=== PATIENT | female | born 1960 | race Caucasian/White ===

== ENCOUNTER 2021-07-15 08:01 | Day surgery (SDC) | payer MEDICARE, OTHER ==
[~2021-07-15 08:01] MED LIST: Brimonidine 0.2% Ophth Soln 5 ML Bottle EYERT SCH; Cefuroxime 10 MG/ML SYRINGE EYERT SCH; Lidocaine 1% PF 2 ML SDV INJECT SCH; Phenylephrine 2.5% Ophth Soln 2 ML Bot EYERT SCH; Pilocarpine 4% Ophth Soln 15 ML Bot EYERT SCH; Polymyxin B/Trimethoprim 10 ML Bottle EYERT SCH; Tetracaine HCl/PF 0.5% 4 ML Bottle EYEBOTH SCH; Tropicamide 1% Ophth Soln 15 ML Bottle EYERT SCH
--- NOTE | 2021-07-15 08:40 | PCM.PREANE ---
Preanesthetic Assessment - Procedure Proposed Procedure: Cataract Extraction of right eye with IOL. - Anesthesia/Transfusion/Family Hx Anesthesia History: Prior Anesthesia Without Reaction Family History of Anesthesia Reaction: No Transfusion History: No Prior Transfusion(s) Intubation History: Unknown - Review of Systems General: No Symptoms Pulmonary: No Symptoms (ETOH: occasionally) Cardiovascular: No Symptoms (HTN) Gastrointestinal: No Symptoms (GERD) Neurological: No Symptoms (Multiple Sclerosis), Tingling (due to MS) Other: Reports: Easy Bruising, Anxiety - Physical Assessment NPO Status Date: 07/14/21 NPO Status Time: 19:00 Vital Signs: HR: 57 Sat: 98% Resp: 16 B/P: 146/109 Temp: 97.7 Height: 1.68 m Weight: 68.039 kg ASA Class: 3 Mental Status: Alert & Oriented x3 Airway Class: Mallampati = 2 Dentition: Reports: Normal Dentition, Caries Thyro-Mental Finger Breadths: 3 Mouth Opening Finger Breadths: 3 ROM/Head Extension: Full Lungs: Clear to Auscultation, Normal Respiratory Effort Cardiovascular: Regular Rate, Regular Rhythm, No Murmurs - Allergies Allergies/Adverse Reactions: Allergies Allergy/AdvReac Type Severity Reaction Status Date / Time sulfacetamide Allergy Rash Verified 06/21/21 15:20 - Anesthesia Plan Pre-Op Medication Ordered: Beta Johnny Beta Johnny: Metoprolol Med Last Dose Date: 07/14/21 Med Last Dose Time: 19:00 - Acknowledgements Anesthesia Type Planned: MAC Pt an Appropriate Candidate for the Planned Anesthesia: Yes Alternatives and Risks of Anesthesia Discussed w Pt/Guardian: Yes Pt/Guardian Understands and Agrees with Anesthesia Plan: Yes PreAnesthesia Questionnaire - HOME MEDS Home Medications: Home Meds FLUoxetine [PROzac] 40 mg PO DAILY 06/21/21 [History] Gabapentin [Neurontin] 100 mg PO ASDIRECTED 06/21/21 [History] Losartan [Cozaar] 50 mg PO DAILY 06/21/21 [History] Metoprolol Succinate [Kapspargo Sprinkle] 50 mg PO DAILY 06/21/21 [History] Sertraline [Zoloft] 50 mg PO DAILY 06/21/21 [History] traMADol [Ultram] 50 mg PO ASDIRECTED 06/21/21 [History] - CURRENT (IN HOUSE) MEDS Current Meds: Current Medications Brimonidine Tartrate (Brimonidine 0.2% Ophth Soln 5 Ml Bottle) 0 ml EYERT ASDIRECTED ZEE Stop: 07/15/21 18:00 Cefuroxime Sodium (Cefuroxime 10 Mg/Ml Syringe) 0 mg EYERT ASDIRECTED ZEE Stop: 07/15/21 18:00 Lidocaine HCl (Lidocaine 1% Pf 2 Ml Sdv) 0 ml INJECT ASDIRECTED ZEE Stop: 07/15/21 18:00 Ofloxacin (Ofloxacin 0.3% Ophth Soln 5 Ml Bottle) 0 ml EYERT ASDIRECTED ZEE Stop: 07/15/21 18:00 Phenylephrine HCl (Phenylephrine 2.5% Ophth Soln 2 Ml Bot) 0 ml EYERT ASDIRECTED ZEE Stop: 07/15/21 18:00 Pilocarpine HCl (Pilocarpine 4% Ophth Soln 15 Ml Bot) 0 ml EYERT ASDIRECTED ZEE Stop: 07/15/21 18:00 Tetracaine HCl (Tetracaine Hcl/Pf 0.5% 4 Ml Bottle) 0 ml EYEBOTH ASDIRECTED ZEE Stop: 07/15/21 18:00 Tropicamide (Tropicamide 1% Ophth Soln 15 Ml Bottle) 0 ml EYERT ASDIRECTED ZEE Stop: 07/15/21 18:00 Discontinued Medications Brimonidine Tartrate (Brimonidine 0.2% Ophth Soln 5 Ml Bottle) 0 ml EYERT ASDIRECTED ZEE Stop: 07/06/21 16:00 Cefuroxime Sodium (Cefuroxime 10 Mg/Ml Syringe) 0 mg EYERT ASDIRECTED ZEE Stop: 07/06/21 16:00 Lidocaine HCl (Lidocaine 1% Pf 2 Ml Sdv) 0 ml INJECT ASDIRECTED ZEE Stop: 07/06/21 16:00 Phenylephrine HCl (Phenylephrine 2.5% Ophth Soln 2 Ml Bot) 0 ml EYERT ASDIRECTED ZEE Stop: 07/06/21 16:00 Pilocarpine HCl (Pilocarpine 4% Ophth Soln 15 Ml Bot) 0 ml EYERT ASDIRECTED ZEE Stop: 07/06/21 16:00 Polymyxin/Trimethoprim Sulfate (Polymyxin B/Trimethoprim 10 Ml Bottle) 0 ml EYERT ASDIRECTED ZEE Stop: 07/06/21 16:00 Tetracaine HCl (Tetracaine Hcl/Pf 0.5% 4 Ml Bottle) 0 ml EYEBOTH ASDIRECTED ZEE Stop: 07/06/21 16:00 Tropicamide (Tropicamide 1% Ophth Soln 15 Ml Bottle) 0 ml EYERT ASDIRECTED ZEE Stop: 07/06/21 16:00
[2021-07-15] MEDS: Ofloxacin 0.3% Ophth Soln 5 ML Bottle EYERT SCH ×4 (08:58→10:39)
[2021-07-15] MEDS: Brimonidine 0.2% Ophth Soln 5 ML Bottle EYERT SCH ×4 (09:02→10:39)
[2021-07-15] MEDS: Phenylephrine 2.5% Ophth Soln 2 ML Bot EYERT SCH ×6 (09:07→10:14)
[2021-07-15] MEDS: Tropicamide 1% Ophth Soln 15 ML Bottle EYERT SCH ×4 (09:11→09:50)
[2021-07-15] MEDS: Tetracaine HCl/PF 0.5% 4 ML Bottle EYEBOTH SCH ×3 (09:56→10:27)
[2021-07-15] MEDS: Lidocaine 1% PF 2 ML SDV INJECT SCH ×2 (10:14→10:28)
[2021-07-15] MEDS: Cefuroxime 10 MG/ML SYRINGE EYERT SCH ×2 (10:15→10:38)
[2021-07-15] MEDS: Pilocarpine 4% Ophth Soln 15 ML Bot EYERT SCH ×2 (10:15→10:39)
--- NOTE | 2021-07-15 10:41 | PCM48HPAN ---
Post Anesthesia Note - EVALUATION WITHIN 48HRS OF ANESTHETIC Vital Signs in Normal Range: Yes Patient Participated in Evaluation: Yes Respiratory Function Stable: Yes Airway Patent: Yes Cardiovascular Function Stable: Yes Hydration Status Stable: Yes Pain Control Satisfactory: Yes Nausea and Vomiting Control Satisfactory: Yes Mental Status Recovered: Yes
== END 2021-07-15 10:50 | disposition home or self-care (01) ==
LOC: JD.SDS 08:01
PROVIDERS: ATTEND Ophthalmology
DX: H25.813 Combined forms of age-related cataract, bilateral (principal); G35 Multiple sclerosis; I10 Essential (primary) hypertension; Z98.890 Other specified postprocedural states; Z79.899 Other long term (current) drug therapy
CPT/HCPCS: 66984; J0697; A9270-GY; C1780

== ENCOUNTER 2021-09-30 08:31 | Day surgery (SDC) | payer MEDICARE ==
[~2021-09-30 08:31] MED LIST changes: -Brimonidine 0.2% Ophth Soln 5 ML Bottle EYERT SCH; -Cefuroxime 10 MG/ML SYRINGE EYERT SCH; -Lidocaine 1% PF 2 ML SDV INJECT SCH; -Phenylephrine 2.5% Ophth Soln 2 ML Bot EYERT SCH; -Pilocarpine 4% Ophth Soln 15 ML Bot EYERT SCH; +Polymyxin B/Trimethoprim 10 ML Bottle EYELF SCH; -Polymyxin B/Trimethoprim 10 ML Bottle EYERT SCH; -Tetracaine HCl/PF 0.5% 4 ML Bottle EYEBOTH SCH; -Tropicamide 1% Ophth Soln 15 ML Bottle EYERT SCH
[2021-09-30] MEDS: Ofloxacin 0.3% Ophth Soln 5 ML Bottle EYELF SCH ×4 (09:00→12:01)
[2021-09-30] MEDS: Brimonidine 0.2% Ophth Soln 5 ML Bottle EYELF SCH ×4 (09:06→12:01)
[2021-09-30] MEDS: Phenylephrine 2.5% Ophth Soln 2 ML Bot EYELF SCH ×6 (09:10→11:54)
[2021-09-30] MEDS: Tropicamide 1% Ophth Soln 15 ML Bottle EYELF SCH ×4 (09:15→10:17)
[2021-09-30] MEDS ORDERED: Metoprolol Tartrate 25 MG Tab PO ONE (09:45)
[2021-09-30] MEDS: Tetracaine HCl/PF 0.5% 4 ML Bottle EYEBOTH SCH ×3 (11:33→11:54)
[2021-09-30] MEDS: Lidocaine 1% PF 2 ML SDV INJECT SCH ×2 (11:50→11:54)
[2021-09-30] MEDS: Cefuroxime 10 MG/ML SYRINGE EYELF SCH ×2 (11:54→12:00)
[2021-09-30] MEDS: Pilocarpine 4% Ophth Soln 15 ML Bot EYELF SCH ×2 (11:55→12:01)
== END 2021-09-30 12:11 | disposition home or self-care (01) ==
LOC: JD.SDS 08:31
PROVIDERS: ATTEND Ophthalmology
DX: H25.812 Combined forms of age-related cataract, left eye (principal); I10 Essential (primary) hypertension; Z98.890 Other specified postprocedural states; Z88.2 Allergy status to sulfonamides
CPT/HCPCS: 66984; A9270; J0697; C1780

== ENCOUNTER 2024-07-10 18:50 | Inpatient (IN) | payer MEDICARE ==
[2024-07-10 19:44] LABS: BASOPHILS PERCENT AUTO 0.3 % (0.0-1.0); EOSINOPHILS ABSOLUTE AUTO 0.1 K/mm3 (0.0-0.4); EOSINOPHILS PERCENT AUTO 0.6 % (0.0-6.0); HEMATOCRIT 44.5 % (37.0-47.0); HEMOGLOBIN 14.9 gm/dl (12.0-16.0); IMMATURE GRAN ABSOLUTE AUTO 0.04 K/mm3 (0.00-0.05); IMMATURE GRAN PERCENT AUTO 0.3 % (0.0-0.4); LYMPHOCYTES ABSOLUTE AUTO 0.6 K/mm3 (1.0-4.8); LYMPHOCYTES PERCENT AUTO 5.2 % (24.0-44.0); MEAN CORPUSCULAR HEMOGLOBIN 29.6 pg (28.0-32.0); MEAN CORPUSCULAR HGB CONC 33.5 g/dl (32.0-36.0); MEAN CORPUSCULAR VOLUME 88.5 fl (83.0-99.0); MEAN PLATELET VOLUME 10.1 fl (9.4-12.3); MONOCYTES ABSOLUTE AUTO 0.7 K/mm3 (0.0-0.8); MONOCYTES PERCENT AUTO 5.9 % (0.0-8.0); NEUTROPHILS ABSOLUTE AUTO 10.2 K/mm3 (1.8-7.7); NEUTROPHILS PERCENT AUTO 87.7 % (41.0-71.0); PLATELET COUNT,PLT 211 K/mm3 (150-400); RED BLOOD CELL COUNT 5.03 M/mm3 (4.10-5.30); WHITE BLOOD CELL COUNT,WBC 11.63 K/mm3 (3.9-11.3)
[2024-07-10 19:49] LABS: APPEARANCE,URINE SLT CLOUDY (Clear); BILIRUBIN,URINE NEGATIVE (Negative); COLOR,URINE YELLOW (Yellow); GLUCOSE,URINE NEGATIVE (Negative); KETONES,URINE NEGATIVE (Negative); LEUKOCYTE ESTERASE,URINE 2+ (Negative); NITRITE,URINE POSITIVE (Negative); OCCULT BLOOD,URINE 1+ (Negative); PH,URINE 6.5 (5.0-8.0); PROTEIN,URINE 1+ (Negative); UROBILINOGEN,URINE 0.2 (0.2-1.0)
[2024-07-10 19:54] LABS: ALBUMIN 3.5 g/dl (3.4-5.0); BUN/CREATININE RATIO 21.3 (14-18); C-REACTIVE PROTEIN 0.85 mg/dL (<0.30); CALCIUM 8.9 mg/dL (8.5-10.1); CREATININE 0.8 mg/dL (0.55-1.02); EST CRCL DRUG DOSING (CG) 65.63 mL/min; PROTEIN TOTAL,TP 7.1 g/dl (6.4-8.2)
[2024-07-10 19:55] LABS: BARBITURATE SCREEN,URINE NEGATIVE (CUTOFF=200); BENZODIAZEPINES SCREEN,URINE PRESUMPTIVE POSITIVE (CUTOFF=150); BUPRENORPHINE SCREEN,URINE NEGATIVE (CUTOFF=10); METHADONE SCREEN, URINE NEGATIVE (CUTOFF=200); METHAMPHETAMINES SCREEN, URINE NEGATIVE (CUTOFF=500); OXYCODONE SCREEN,URINE NEGATIVE (CUT0FF=100); THC SCREEN,URINE 20 NG/ML NEGATIVE (CUTOFF=50)
[2024-07-10] MEDS: Naloxone 0.4 MG/ML SDV IVPUSH ONE (19:57)
[2024-07-10 19:58] LABS: AMPHETAMINES SCREEN, URINE NEGATIVE (CUTOFF=500)
[2024-07-10 20:00] LABS: SQUAMOUS EPITHELIAL CELLS,UR 0-5 /hpf (0-5); WBC,URINE 30-40 /hpf (0-5)
[2024-07-10 20:01] LABS: BACTERIA,URINE MANY /hpf (FEW); MUCUS,URINE FEW /hpf (FEW)
[2024-07-10] MEDS: cefTRIAXone 1 GM Vial IV ONE (20:55)
[2024-07-10] MEDS: cefTRIAXone 1 GM in Sodium Chloride 0.9% 50 ML IV ONE ×2 (21:03→22:49)
[2024-07-10] MEDS: Sodium Chloride 0.9% 1,000 ML IV ONE (21:29)
[2024-07-10] MEDS: Sodium Chloride 0.9% 50 ML ONE (21:30)
[2024-07-10] MEDS: D5 1/2 NS w/ 20 mEq/L KCl 1,000 ML IV SCH (22:41)
[2024-07-10] MEDS: LORazepam 2 MG/ML SDV IVPUSH ONE ×2 (22:41→22:49)
[2024-07-10] MEDS: Metoprolol Tartrate 5 MG/5 ML SDV IVPUSH ONE (22:44)
[2024-07-11] MEDS ORDERED: LORazepam 2 MG/ML SDV IVPUSH PRN (00:53)
[2024-07-11] MEDS: hydrALAZINE 20 MG/ML SDV IVPUSH ONE (02:06)
[2024-07-11] MEDS: hydrALAZINE 20 MG/ML SDV ONE (02:19)
[2024-07-11] MEDS: Metoprolol Tartrate 5 MG/5 ML SDV IVPUSH PRN (03:58)
[2024-07-11 04:31] LABS: BASOPHILS PERCENT AUTO 0.3 % (0.0-1.0); EOSINOPHILS PERCENT AUTO 0.1 % (0.0-6.0); HEMATOCRIT 38.5 % (37.0-47.0); HEMOGLOBIN 12.8 gm/dl (12.0-16.0); IMMATURE GRAN ABSOLUTE AUTO 0.04 K/mm3 (0.00-0.05); IMMATURE GRAN PERCENT AUTO 0.3 % (0.0-0.4); LYMPHOCYTES ABSOLUTE AUTO 1.5 K/mm3 (1.0-4.8); LYMPHOCYTES PERCENT AUTO 10.8 % (24.0-44.0); MEAN CORPUSCULAR HEMOGLOBIN 29.2 pg (28.0-32.0); MEAN CORPUSCULAR HGB CONC 33.2 g/dl (32.0-36.0); MEAN CORPUSCULAR VOLUME 87.9 fl (83.0-99.0); MEAN PLATELET VOLUME 9.9 fl (9.4-12.3); MONOCYTES ABSOLUTE AUTO 1.1 K/mm3 (0.0-0.8); MONOCYTES PERCENT AUTO 8.1 % (0.0-8.0); NEUTROPHILS ABSOLUTE AUTO 11.1 K/mm3 (1.8-7.7); NEUTROPHILS PERCENT AUTO 80.4 % (41.0-71.0); PLATELET COUNT,PLT 188 K/mm3 (150-400); RED BLOOD CELL COUNT 4.38 M/mm3 (4.10-5.30); WHITE BLOOD CELL COUNT,WBC 13.81 K/mm3 (3.9-11.3)
[2024-07-11 04:55] LABS: A/G RATIO 0.9 (1-2); ALBUMIN 3.1 g/dl (3.4-5.0); ANION GAP 16.1 (5-15); BILIRUBIN TOTAL 1.1 mg/dL (0.2-1.0); BUN/CREATININE RATIO 18.6 (14-18); CALCIUM 8.4 mg/dL (8.5-10.1); CREATININE 0.7 mg/dL (0.55-1.02); EST CRCL DRUG DOSING (CG) 75.01 mL/min; MAGNESIUM 1.7 mg/dL (1.8-2.4); PHOSPHORUS 2.1 mg/dL (2.6-4.7); POTASSIUM,K 4.1 mEq/L (3.5-5.1); PROTEIN TOTAL,TP 6.4 g/dl (6.4-8.2)
[2024-07-11] MEDS: Labetalol 100 MG/20 ML MDV IVPUSH PRN ×2 (05:12→20:14)
[2024-07-11] MEDS: Ketorolac 15 MG/ML SDV IVPUSH ONE (06:28)
[2024-07-11] MEDS ORDERED: Albuterol/Ipratropium 3.0-0.5 MG/3 ML Neb Soln NEB PRN (08:03)
[2024-07-11] MEDS ORDERED: Albuterol 0.083% 2.5 MG/3 ML Neb Soln NEB PRN (08:03)
[2024-07-11] MEDS ORDERED: Acetaminophen 650 MG Supp RECTAL PRN (08:03)
[2024-07-11] MEDS ORDERED: Potassium Phosphates 30 MMOLE in Sodium Chloride 0.9% 500 ML IV SCH (08:15)
[2024-07-11] MEDS: Pantoprazole 40 MG Vial IVPUSH SCH (08:28)
[2024-07-11] MEDS: Magnesium Sulfate/Water Premix 2 GM in Premix Bag 1 BAG IV ONE (08:28)
[2024-07-11 08:59] LABS: LACTIC ACID 2.3 mmol/L (0.4-2.0)
[2024-07-11] MEDS: Enoxaparin 40 MG/0.4 ML Syringe SUBCUT SCH (10:30)
[2024-07-11] MEDS: Sodium Chloride 0.9% 500 ML IV ONE (10:31)
[2024-07-11] MEDS: Sodium Phosphate 30 MMOLE in Sodium Chloride 0.9% 250 ML IV ONE (10:31)
[2024-07-11] MEDS: Dextrose 5%-Lact Ringers w/KCl 1,000 ML IV SCH (11:54)
[2024-07-11] MEDS: Sodium Chloride 0.9% 250 ML IV ONE (13:06)
[2024-07-11] MEDS: Morphine 2 MG/ML SYRINGE IVPUSH ONE (13:13)
[2024-07-11] MEDS: Morphine 2 MG/ML SYRINGE IVPUSH PRN ×2 (15:52→19:53)
[2024-07-11] MEDS: cefTRIAXone 2 GM Vial IV SCH (19:34)
[2024-07-11] MEDS ORDERED: cefTRIAXone 2 GM in Sodium Chloride 0.9% 100 ML IV SCH (20:00)
[2024-07-11] MEDS: LORazepam 2 MG/ML SDV IVPUSH SCH (20:57)
[2024-07-12 04:46] LABS: BASOPHILS PERCENT AUTO 0.3 % (0.0-1.0); EOSINOPHILS PERCENT AUTO 0.1 % (0.0-6.0); HEMATOCRIT 33.2 % (37.0-47.0); HEMOGLOBIN 11.1 gm/dl (12.0-16.0); IMMATURE GRAN ABSOLUTE AUTO 0.03 K/mm3 (0.00-0.05); IMMATURE GRAN PERCENT AUTO 0.3 % (0.0-0.4); LYMPHOCYTES ABSOLUTE AUTO 0.9 K/mm3 (1.0-4.8); LYMPHOCYTES PERCENT AUTO 8.9 % (24.0-44.0); MEAN CORPUSCULAR HEMOGLOBIN 29.4 pg (28.0-32.0); MEAN CORPUSCULAR HGB CONC 33.4 g/dl (32.0-36.0); MEAN CORPUSCULAR VOLUME 87.8 fl (83.0-99.0); MEAN PLATELET VOLUME 10.2 fl (9.4-12.3); MONOCYTES PERCENT AUTO 10.3 % (0.0-8.0); NEUTROPHILS ABSOLUTE AUTO 7.8 K/mm3 (1.8-7.7); NEUTROPHILS PERCENT AUTO 80.1 % (41.0-71.0); PLATELET COUNT,PLT 144 K/mm3 (150-400); RED BLOOD CELL COUNT 3.78 M/mm3 (4.10-5.30); WHITE BLOOD CELL COUNT,WBC 9.73 K/mm3 (3.9-11.3)
[2024-07-12 05:22] LABS: A/G RATIO 0.9 (1-2); ANION GAP 14.6 (5-15); BILIRUBIN TOTAL 0.9 mg/dL (0.2-1.0); BUN/CREATININE RATIO 6.7 (14-18); CALCIUM 8.5 mg/dL (8.5-10.1); CREATININE 0.6 mg/dL (0.55-1.02); EST CRCL DRUG DOSING (CG) 87.51 mL/min; MAGNESIUM 1.5 mg/dL (1.8-2.4); PHOSPHORUS 2.3 mg/dL (2.6-4.7); POTASSIUM,K 3.6 mEq/L (3.5-5.1); PROTEIN TOTAL,TP 6.2 g/dl (6.4-8.2)
[2024-07-12] MEDS ORDERED: LORazepam 2 MG/ML SDV IVPUSH PRN (08:32)
[2024-07-12 08:36] LABS: BICARBONATE,ARTERIAL 21.7 meq/L (22.0-26.0); O2 SATURATION ARTERIAL 97.1 % (96.0-97.0); PCO2 ARTERIAL 31.1 mmHg (35.0-45.0)
[2024-07-12] MEDS: LORazepam 2 MG/ML SDV IVPUSH ONE ×2 (09:42→10:35)
[2024-07-12] MEDS: Magnesium Sulfate/Water Premix 4 GM in Premix Bag 1 BAG IV ONE (11:29)
[2024-07-12] MEDS: Morphine 2 MG/ML SYRINGE IVPUSH ONE (12:00)
[2024-07-12] MEDS: Potassium Phosphates 30 MMOLE in Sodium Chloride 0.9% 500 ML IV ONE (13:48)
[2024-07-12] MEDS: Naloxone 0.4 MG/ML SDV ONE (16:20)
[2024-07-13 05:31] LABS: BASOPHILS ABSOLUTE AUTO 0.1 K/mm3 (0.0-0.2); BASOPHILS PERCENT AUTO 0.4 % (0.0-1.0); EOSINOPHILS PERCENT AUTO 0.1 % (0.0-6.0); HEMATOCRIT 35.8 % (37.0-47.0); HEMOGLOBIN 12.2 gm/dl (12.0-16.0); IMMATURE GRAN ABSOLUTE AUTO 0.04 K/mm3 (0.00-0.05); IMMATURE GRAN PERCENT AUTO 0.3 % (0.0-0.4); LYMPHOCYTES ABSOLUTE AUTO 1.1 K/mm3 (1.0-4.8); LYMPHOCYTES PERCENT AUTO 8.9 % (24.0-44.0); MEAN CORPUSCULAR HEMOGLOBIN 29.8 pg (28.0-32.0); MEAN CORPUSCULAR HGB CONC 34.1 g/dl (32.0-36.0); MEAN CORPUSCULAR VOLUME 87.5 fl (83.0-99.0); MEAN PLATELET VOLUME 10.8 fl (9.4-12.3); MONOCYTES ABSOLUTE AUTO 1.3 K/mm3 (0.0-0.8); MONOCYTES PERCENT AUTO 10.9 % (0.0-8.0); NEUTROPHILS ABSOLUTE AUTO 9.4 K/mm3 (1.8-7.7); NEUTROPHILS PERCENT AUTO 79.4 % (41.0-71.0); PLATELET COUNT,PLT 178 K/mm3 (150-400); RED BLOOD CELL COUNT 4.09 M/mm3 (4.10-5.30); WHITE BLOOD CELL COUNT,WBC 11.88 K/mm3 (3.9-11.3)
[2024-07-13 05:58] LABS: A/G RATIO 0.9 (1-2); ALBUMIN 3.3 g/dl (3.4-5.0); ANION GAP 18.2 (5-15); BILIRUBIN TOTAL 1.3 mg/dL (0.2-1.0); CALCIUM 8.7 mg/dL (8.5-10.1); CREATININE 0.6 mg/dL (0.55-1.02); EST CRCL DRUG DOSING (CG) 87.51 mL/min; PHOSPHORUS 3.3 mg/dL (2.6-4.7); POTASSIUM,K 4.2 mEq/L (3.5-5.1); PROTEIN TOTAL,TP 6.9 g/dl (6.4-8.2)
[2024-07-13] MEDS: Morphine 2 MG/ML SYRINGE IVPUSH PRN (08:26)
[2024-07-13] MEDS: LORazepam 2 MG/ML SDV IM ONE (09:28)
[2024-07-13] MEDS: Dextrose 5%-0.45% NaCl 1,000 ML IV SCH (20:27)
[2024-07-13] MEDS: hydrALAZINE 20 MG/ML SDV IVPUSH PRN (20:51)
[2024-07-14 05:31] LABS: BASOPHILS ABSOLUTE AUTO 0.1 K/mm3 (0.0-0.2); BASOPHILS PERCENT AUTO 0.6 % (0.0-1.0); EOSINOPHILS ABSOLUTE AUTO 0.1 K/mm3 (0.0-0.4); EOSINOPHILS PERCENT AUTO 1.5 % (0.0-6.0); HEMOGLOBIN 11.5 gm/dl (12.0-16.0); IMMATURE GRAN ABSOLUTE AUTO 0.02 K/mm3 (0.00-0.05); IMMATURE GRAN PERCENT AUTO 0.2 % (0.0-0.4); LYMPHOCYTES ABSOLUTE AUTO 1.2 K/mm3 (1.0-4.8); LYMPHOCYTES PERCENT AUTO 13.7 % (24.0-44.0); MEAN CORPUSCULAR HEMOGLOBIN 29.1 pg (28.0-32.0); MEAN CORPUSCULAR HGB CONC 32.9 g/dl (32.0-36.0); MEAN CORPUSCULAR VOLUME 88.6 fl (83.0-99.0); MEAN PLATELET VOLUME 10.5 fl (9.4-12.3); MONOCYTES ABSOLUTE AUTO 0.9 K/mm3 (0.0-0.8); MONOCYTES PERCENT AUTO 10.5 % (0.0-8.0); NEUTROPHILS ABSOLUTE AUTO 6.3 K/mm3 (1.8-7.7); NEUTROPHILS PERCENT AUTO 73.5 % (41.0-71.0); PLATELET COUNT,PLT 172 K/mm3 (150-400); RED BLOOD CELL COUNT 3.95 M/mm3 (4.10-5.30)
[2024-07-14 05:48] LABS: A/G RATIO 0.8 (1-2); ANION GAP 15.5 (5-15); BILIRUBIN TOTAL 0.7 mg/dL (0.2-1.0); BUN/CREATININE RATIO 21.7 (14-18); CREATININE 0.6 mg/dL (0.55-1.02); EST CRCL DRUG DOSING (CG) 87.51 mL/min; MAGNESIUM 1.8 mg/dL (1.8-2.4); PHOSPHORUS 3.9 mg/dL (2.6-4.7); POTASSIUM,K 4.5 mEq/L (3.5-5.1); PROTEIN TOTAL,TP 6.6 g/dl (6.4-8.2)
[2024-07-14] MEDS: Ondansetron 4 MG/2 ML SDV IV PRN (08:50)
[2024-07-14] MEDS ORDERED: Gabapentin 100 MG Cap PO SCH (12:00)
[2024-07-14] MEDS: Gabapentin 300 MG Cap PO ONE (12:08)
[2024-07-14] MEDS: LORazepam 2 MG/ML SDV IVPUSH ONE (12:13)
[2024-07-14] MEDS: LORazepam 2 MG/ML SDV IVPUSH PRN (14:15)
[2024-07-14] MEDS: Gabapentin 300 MG Cap PO SCH (17:31)
[2024-07-14] MEDS: Gabapentin 100 MG Cap PO SCH (17:31)
[2024-07-15 05:51] LABS: LACTIC ACID 0.4 mmol/L (0.4-2.0)
[2024-07-15 05:58] LABS: BASOPHILS PERCENT AUTO 0.5 % (0.0-1.0); EOSINOPHILS ABSOLUTE AUTO 0.1 K/mm3 (0.0-0.4); EOSINOPHILS PERCENT AUTO 2.2 % (0.0-6.0); HEMATOCRIT 33.9 % (37.0-47.0); HEMOGLOBIN 11.2 gm/dl (12.0-16.0); IMMATURE GRAN ABSOLUTE AUTO 0.02 K/mm3 (0.00-0.05); IMMATURE GRAN PERCENT AUTO 0.3 % (0.0-0.4); LYMPHOCYTES PERCENT AUTO 16.5 % (24.0-44.0); MEAN CORPUSCULAR HEMOGLOBIN 29.6 pg (28.0-32.0); MEAN CORPUSCULAR VOLUME 89.7 fl (83.0-99.0); MEAN PLATELET VOLUME 10.5 fl (9.4-12.3); MONOCYTES ABSOLUTE AUTO 0.8 K/mm3 (0.0-0.8); MONOCYTES PERCENT AUTO 12.1 % (0.0-8.0); NEUTROPHILS ABSOLUTE AUTO 4.3 K/mm3 (1.8-7.7); NEUTROPHILS PERCENT AUTO 68.4 % (41.0-71.0); PLATELET COUNT,PLT 196 K/mm3 (150-400); RED BLOOD CELL COUNT 3.78 M/mm3 (4.10-5.30); WHITE BLOOD CELL COUNT,WBC 6.29 K/mm3 (3.9-11.3)
[2024-07-15 06:02] LABS: A/G RATIO 0.8 (1-2); ALBUMIN 2.5 g/dl (3.4-5.0); ANION GAP 12.9 (5-15); BILIRUBIN TOTAL 0.4 mg/dL (0.2-1.0); BUN/CREATININE RATIO 17.1 (14-18); CALCIUM 8.2 mg/dL (8.5-10.1); CREATININE 0.7 mg/dL (0.55-1.02); EST CRCL DRUG DOSING (CG) 75.01 mL/min; MAGNESIUM 1.6 mg/dL (1.8-2.4); PHOSPHORUS 3.7 mg/dL (2.6-4.7); POTASSIUM,K 3.9 mEq/L (3.5-5.1); PROTEIN TOTAL,TP 5.7 g/dl (6.4-8.2); TSH 2.596 uIU/mL (0.358-3.74)
[2024-07-15 06:11] LABS: IRON,FE 21 ug/dL (50-170)
[2024-07-15 06:12] LABS: PERCENT FE SATURATION 10 % (20-55); TOTAL IRON BINDING CAPACITY 216 ug/dL (100-400); TRANSFERRIN 173 mg/dL (202-364)
[2024-07-15 06:14] LABS: INR 1.04
[2024-07-15 07:06] LABS: FOLIC ACID 19.2 ng/mL (8.6-58.9)
[2024-07-15] MEDS: Gabapentin 600 MG Tab PO SCH (08:28)
[2024-07-15] MEDS: Magnesium Sulfate/Water Premix 2 GM in Premix Bag 1 BAG IV ONE (09:20)
[2024-07-15] MEDS: Sodium Ferric Gluconate Cmplex 125 MG in Sodium Chloride 0.9% 100 ML IV ONE (09:28)
[2024-07-15] MEDS: Metoprolol Tartrate 5 MG/5 ML SDV IVPUSH PRN (21:44)
[2024-07-16 04:36] LABS: BASOPHILS PERCENT AUTO 0.3 % (0.0-1.0); EOSINOPHILS PERCENT AUTO 0.2 % (0.0-6.0); HEMATOCRIT 30.7 % (37.0-47.0); HEMOGLOBIN 10.4 gm/dl (12.0-16.0); IMMATURE GRAN ABSOLUTE AUTO 0.02 K/mm3 (0.00-0.05); IMMATURE GRAN PERCENT AUTO 0.3 % (0.0-0.4); LYMPHOCYTES ABSOLUTE AUTO 0.7 K/mm3 (1.0-4.8); LYMPHOCYTES PERCENT AUTO 11.5 % (24.0-44.0); MEAN CORPUSCULAR HEMOGLOBIN 29.2 pg (28.0-32.0); MEAN CORPUSCULAR HGB CONC 33.9 g/dl (32.0-36.0); MEAN CORPUSCULAR VOLUME 86.2 fl (83.0-99.0); MEAN PLATELET VOLUME 9.7 fl (9.4-12.3); MONOCYTES PERCENT AUTO 16.6 % (0.0-8.0); NEUTROPHILS ABSOLUTE AUTO 4.5 K/mm3 (1.8-7.7); NEUTROPHILS PERCENT AUTO 71.1 % (41.0-71.0); PLATELET COUNT,PLT 210 K/mm3 (150-400); RED BLOOD CELL COUNT 3.56 M/mm3 (4.10-5.30); WHITE BLOOD CELL COUNT,WBC 6.27 K/mm3 (3.9-11.3)
[2024-07-16] MEDS: Magnesium Sulfate/Water Premix 2 GM in Premix Bag 1 BAG IV ONE (07:29)
[2024-07-16 07:44] LABS: A/G RATIO 0.9 (1-2); ANION GAP 19.2 (5-15); BILIRUBIN TOTAL 0.7 mg/dL (0.2-1.0); CALCIUM 8.6 mg/dL (8.5-10.1); CREATININE 0.6 mg/dL (0.55-1.02); EST CRCL DRUG DOSING (CG) 87.51 mL/min; POTASSIUM,K 3.2 mEq/L (3.5-5.1); PROTEIN TOTAL,TP 6.3 g/dl (6.4-8.2)
[2024-07-16] MEDS: Potassium Chloride 10 MEQ in Premix Bag 1 BAG IV SCH (08:40)
[2024-07-16] MEDS: Dextrose 5%-Lact Ringers w/KCl 1,000 ML IV SCH (08:40)
[2024-07-16 19:42] LABS: SEROTONIN <10 ng/mL (50-220)
[2024-07-16] MEDS: Melatonin 3 MG Tab PO PRN (19:58)
[2024-07-17 07:44] LABS: BASOPHILS PERCENT AUTO 0.4 % (0.0-1.0); EOSINOPHILS PERCENT AUTO 0.3 % (0.0-6.0); HEMATOCRIT 34.5 % (37.0-47.0); HEMOGLOBIN 11.5 gm/dl (12.0-16.0); IMMATURE GRAN ABSOLUTE AUTO 0.02 K/mm3 (0.00-0.05); IMMATURE GRAN PERCENT AUTO 0.2 % (0.0-0.4); MEAN CORPUSCULAR HEMOGLOBIN 29.3 pg (28.0-32.0); MEAN CORPUSCULAR HGB CONC 33.3 g/dl (32.0-36.0); MEAN CORPUSCULAR VOLUME 87.8 fl (83.0-99.0); MEAN PLATELET VOLUME 9.5 fl (9.4-12.3); MONOCYTES ABSOLUTE AUTO 1.2 K/mm3 (0.0-0.8); MONOCYTES PERCENT AUTO 13.7 % (0.0-8.0); NEUTROPHILS ABSOLUTE AUTO 6.6 K/mm3 (1.8-7.7); NEUTROPHILS PERCENT AUTO 74.4 % (41.0-71.0); PLATELET COUNT,PLT 236 K/mm3 (150-400); RED BLOOD CELL COUNT 3.93 M/mm3 (4.10-5.30); WHITE BLOOD CELL COUNT,WBC 8.89 K/mm3 (3.9-11.3)
[2024-07-17 08:08] LABS: A/G RATIO 0.9 (1-2); ALBUMIN 3.1 g/dl (3.4-5.0); BILIRUBIN TOTAL 1.1 mg/dL (0.2-1.0); BUN/CREATININE RATIO 8.6 (14-18); CALCIUM 8.8 mg/dL (8.5-10.1); CREATININE 0.7 mg/dL (0.55-1.02); EST CRCL DRUG DOSING (CG) 75.01 mL/min; MAGNESIUM 1.9 mg/dL (1.8-2.4); PROTEIN TOTAL,TP 6.4 g/dl (6.4-8.2)
[2024-07-17] MEDS: Pantoprazole 40 MG Tab.CR PO SCH (08:33)
[2024-07-17] MEDS: Metoprolol Succinate 50 MG Tab.ER PO SCH (08:37)
[2024-07-17] MEDS: Losartan 100 MG Tab PO SCH (08:37)
[2024-07-17] MEDS: Magnesium Sulfate/Water Premix 2 GM in Premix Bag 1 BAG IV ONE (09:29)
[2024-07-17] MEDS: Potassium Chloride 10 MEQ in Premix Bag 1 BAG IV SCH (09:29)
[2024-07-17] MEDS: Potassium Chloride 20 MEQ Tab.ER PO SCH (09:29)
[2024-07-17] MEDS: Thiamine 100 MG Tab PO SCH (09:42)
[2024-07-17] MEDS: traMADol 50 MG Tab PO PRN (17:03)
[2024-07-18 04:41] LABS: BASOPHILS PERCENT AUTO 0.5 % (0.0-1.0); EOSINOPHILS ABSOLUTE AUTO 0.1 K/mm3 (0.0-0.4); EOSINOPHILS PERCENT AUTO 1.5 % (0.0-6.0); HEMATOCRIT 33.7 % (37.0-47.0); HEMOGLOBIN 11.7 gm/dl (12.0-16.0); IMMATURE GRAN ABSOLUTE AUTO 0.01 K/mm3 (0.00-0.05); IMMATURE GRAN PERCENT AUTO 0.1 % (0.0-0.4); LYMPHOCYTES ABSOLUTE AUTO 1.2 K/mm3 (1.0-4.8); LYMPHOCYTES PERCENT AUTO 14.7 % (24.0-44.0); MEAN CORPUSCULAR HEMOGLOBIN 29.3 pg (28.0-32.0); MEAN CORPUSCULAR HGB CONC 34.7 g/dl (32.0-36.0); MEAN CORPUSCULAR VOLUME 84.5 fl (83.0-99.0); MEAN PLATELET VOLUME 9.7 fl (9.4-12.3); MONOCYTES PERCENT AUTO 12.5 % (0.0-8.0); NEUTROPHILS ABSOLUTE AUTO 5.8 K/mm3 (1.8-7.7); NEUTROPHILS PERCENT AUTO 70.7 % (41.0-71.0); PLATELET COUNT,PLT 264 K/mm3 (150-400); RED BLOOD CELL COUNT 3.99 M/mm3 (4.10-5.30); WHITE BLOOD CELL COUNT,WBC 8.17 K/mm3 (3.9-11.3)
[2024-07-18 04:42] LABS: VITAMIN D 1,25 58.1 pg/mL (19.9-79.3)
[2024-07-18 05:44] LABS: A/G RATIO 0.9 (1-2); ANION GAP 13.5 (5-15); BILIRUBIN TOTAL 0.9 mg/dL (0.2-1.0); BUN/CREATININE RATIO 16.7 (14-18); CALCIUM 8.7 mg/dL (8.5-10.1); CREATININE 0.6 mg/dL (0.55-1.02); EST CRCL DRUG DOSING (CG) 87.51 mL/min; POTASSIUM,K 4.5 mEq/L (3.5-5.1); PROTEIN TOTAL,TP 6.4 g/dl (6.4-8.2)
[2024-07-18] MEDS: Acetaminophen 325 MG Tab PO PRN (11:31)
[2024-07-18] MEDS: Iron Polysaccharides Complex 150 MG Cap PO SCH (13:09)
[2024-07-18] MEDS: Simethicone 80 MG Tab.Chew PO PRN (13:32)
[2024-07-18 18:43] LABS: VITAMIN B1, WHOLE BLOOD 55 nmol/L (70-180)
[2024-07-19 04:45] LABS: BASOPHILS ABSOLUTE AUTO 0.1 K/mm3 (0.0-0.2); BASOPHILS PERCENT AUTO 0.6 % (0.0-1.0); EOSINOPHILS ABSOLUTE AUTO 0.2 K/mm3 (0.0-0.4); EOSINOPHILS PERCENT AUTO 2.5 % (0.0-6.0); HEMATOCRIT 36.3 % (37.0-47.0); HEMOGLOBIN 12.4 gm/dl (12.0-16.0); IMMATURE GRAN ABSOLUTE AUTO 0.04 K/mm3 (0.00-0.05); IMMATURE GRAN PERCENT AUTO 0.5 % (0.0-0.4); LYMPHOCYTES ABSOLUTE AUTO 1.7 K/mm3 (1.0-4.8); MEAN CORPUSCULAR HEMOGLOBIN 29.2 pg (28.0-32.0); MEAN CORPUSCULAR HGB CONC 34.2 g/dl (32.0-36.0); MEAN CORPUSCULAR VOLUME 85.4 fl (83.0-99.0); MEAN PLATELET VOLUME 9.5 fl (9.4-12.3); MONOCYTES PERCENT AUTO 11.4 % (0.0-8.0); NEUTROPHILS ABSOLUTE AUTO 5.4 K/mm3 (1.8-7.7); PLATELET COUNT,PLT 343 K/mm3 (150-400); RED BLOOD CELL COUNT 4.25 M/mm3 (4.10-5.30); WHITE BLOOD CELL COUNT,WBC 8.35 K/mm3 (3.9-11.3)
[2024-07-19 05:15] LABS: A/G RATIO 0.8 (1-2); ALBUMIN 2.9 g/dl (3.4-5.0); ANION GAP 16.1 (5-15); BILIRUBIN TOTAL 0.6 mg/dL (0.2-1.0); BUN/CREATININE RATIO 22.9 (14-18); CALCIUM 8.9 mg/dL (8.5-10.1); CREATININE 0.7 mg/dL (0.55-1.02); EST CRCL DRUG DOSING (CG) 75.01 mL/min; MAGNESIUM 1.8 mg/dL (1.8-2.4); POTASSIUM,K 4.1 mEq/L (3.5-5.1); PROTEIN TOTAL,TP 6.4 g/dl (6.4-8.2)
[2024-07-19] MEDS: Magnesium Sulfate/Water Premix 2 GM in Premix Bag 1 BAG IV ONE (10:12)
[2024-07-20] MEDS: Magnesium Oxide 400 MG Tab PO SCH (08:34)
[2024-07-20] MEDS ORDERED: Acetaminophen 325 MG Tab PO PRN (09:41)
[2024-07-20] MEDS: Gabapentin 100 MG Cap PO SCH (14:31)
[2024-07-21] MEDS: traMADol 50 MG Tab PO PRN (06:38)
[2024-07-21] MEDS: hydrOXYzine HCl 50 MG Tab PO PRN (08:56)
== END 2024-07-24 18:43 | disposition home health service (06) | DRG 917 ==
LOC: JD.ED 18:50 → UNDOADMIN 22:26 → JD.ICU 22:26 → UNDOADMIN 07-16 12:57 → JD.ICU 07-18 08:57 → JD.MS 07-18 10:48 → JD.ICU 07-18 10:49
PROVIDERS: ADMIT Student in an Organized Health Care Education/Training Program; ATTEND Internal Medicine
DX: R41.82 Altered mental status, unspecified (principal); Z88.2 Allergy status to sulfonamides; T42.4X2A Poisoning by benzodiazepines, intentional self-harm, initial encounter; A41.51 Sepsis due to Escherichia coli [E. coli]; R65.20 Severe sepsis without septic shock; G92.8 Other toxic encephalopathy; N30.01 Acute cystitis with hematuria; F32.1 Major depressive disorder, single episode, moderate; E87.20 Acidosis, unspecified; Z66 Do not resuscitate; F41.9 Anxiety disorder, unspecified; F32.A Depression, unspecified; F15.90 Other stimulant use, unspecified, uncomplicated; F10.90 Alcohol use, unspecified, uncomplicated; G35 Multiple sclerosis; E83.42 Hypomagnesemia; E83.39 Other disorders of phosphorus metabolism; E87.6 Hypokalemia; Z86.73 Personal history of transient ischemic attack (TIA), and cerebral infarction without residual deficits; Y92.89 Other specified places as the place of occurrence of the external cause; Z87.898 Personal history of other specified conditions; Z90.710 Acquired absence of both cervix and uterus; Z78.9 Other specified health status
CPT/HCPCS: 36415; 51702; 70450; 71045; 80053; 80143; 80179; 80306; 80307; 81001; 82550; 85025; 86140; 87040 ×2; 87086; 87088; 87186; 93005; 96361; 96365; 96375; 99285; C1758; J0696; J2310; J3490; J7030; 36600; 51701; 82010; 82140; 82607; 82652; 82728; 82746; 82803; 82947; 83540; 83605; 83735; 84100; 84260; 84425; 84443; 84466; 85610; 87899; 93010; 94762; 97110-GP; 97116-GP; 97161-GP; 97530-GP; A9270-GY; J0360; J1650; J1885; J1920; J2060; J2270; J2405; J2470; J2916; J3475; J3480; J7040; J7050; J7799